=== PATIENT | male | born 1950 | race Caucasian/White ===

== ENCOUNTER → 2021-03-19 13:25 | Outpatient (CLI) | payer MEDICARE, OTHER, SELFPAY ==
[2021-03-19 15:51] LABS: COVID19 -Nasal RAPID Negative (Negative)
== END ==
PROVIDERS: PCP Internal Medicine; Referring Provider Specialist; Visit Provider Specialist
DX: Z20.822 Contact with and (suspected) exposure to COVID-19 (principal)
CPT/HCPCS: 87635; C9803

== ENCOUNTER 2021-03-20 06:12 | Day surgery (SDC) | payer MEDICARE, OTHER, SELFPAY ==
--- NOTE | 2021-03-20 | PATH_ITS ---
[facility] Accession Number: [id number] . 01 Material submitted: . PART A: rectum - RECTUM POLYP PART B: colon - SIGMOID POLYP . 01 Clinical history: . SDC . 02 Diagnosis: A. Rectum Polyp: Hyperplastic polyp. . B. Sigmoid Polyp: Multiple (approximately seven) portions of tubular adenoma. MRV 03/25/2021 0930 Local . 02 Electronically signed: . Naomi Alarcon MD, Pathologist NPI- [id number] . 01 Gross description: . Part A: RECTUM POLYP: Received in formalin is 1 fragment(s) of hall, soft tissue measuring 0.6 x 0.3 x 0.2 cm submitted entirely in 1 cassette(s) Part B: SIGMOID POLYP: Received in formalin are multiple fragment(s) of hall, soft tissue measuring 1.5 x 1.0 x 0.3 cm in aggregate submitted entirely in 1 cassette(s) /LANA 03/21/2021 0704 Local . 02 Pathologist provided ICD-10: R19.5, K63.5 . 02 CPT . 316662, [id number] Performed at: 01 [facility] [address], [place], [place] [id number] MD Lalo Peña MD Phone: [phone] Performed at: 02 [facility] [address] [place], [place] [id number] MD Tabatha Price MD Phone: [phone]
[2021-03-20 07:08] VITALS: BP 151/98; PULSE 78; TEMP 36.4; O2SAT 16; BMI 27.9
[2021-03-20] MEDS: LACTATED RINGERS 1,000 ML 200 ML IV (07:15)
--- NOTE | 2021-03-20 07:43 | P.HP_ITS ---
History of Present Illness History of Present Illness Date Patient Seen: 03/20/21 Time Patient Seen: 07:43 Chief complaint: [facility] [place] Narrative: 71-year-old man referred for colonoscopy following a positive fit test. Prior colonoscopies were unremarkable last scope was early . No personal or family history of colon cancer. On further history denies any recent gastrointestinal symptoms. No nausea, vomiting, abdominal pain, loss of appetite, unexplained weight loss, change in bowel habits, diarrhea, constipation, melena, hematochezia, or bright red blood per rectum. Patient History Family & Social History Social History: household members significant other Tobacco & Substance use: Smoking Status Never smoker alcohol intake current alcohol intake frequency holiday/special occasion Substance Use Type does not use Meds Home Medications and Allergies Home Medications Medication Instructions Recorded Confirmed Type amlodipine 5 mg tablet 5 mg PO DAILY 03/20/21 03/20/21 History hydrochlorothiazide 25 mg tablet 25 mg PO DAILY 03/20/21 03/20/21 History Allergies Allergy/AdvReac Type Severity Reaction Status Date / Time No Known Drug Allergies Allergy Verified 03/20/21 06:58 Review of Systems Review of Systems ROS: Yes All systems reviewed with the patient and are negative except as otherwise documented Exam Vital Signs (past 8 hours): - 03/20/21 07:08 Temperature 97.6 F Pulse Rate 78 Blood Pressure 151/98 H Pulse Oximetry 16 L Oxygen Delivery Method Heated High Flow Oxygen Flow Rate 95 Narrative Exam Narrative: GENERAL-well developed adult male, no acute distress HEENT-no scleral icterus, hearing intact NECK-no JVD, trachea midline CVS- regular rate, no peripheral edema RESP-unlabored respiratory effort, no audible wheezing GI-soft, nontender nondistended MSK-no cyanosis or clubbing, extremities without deformity SKIN-warm, dry NEURO-alert and oriented, no focal deficits PYSCH-Appropriate mood and affect Assessment & Plan Assessment and plan (1) Positive FIT (fecal immunochemical test): Status: Acute Assessment & Plan narrative: 71-year-old man with a positive fit test here for colonoscopy.. Technical details were discussed. Risks, benefits, alternatives explained. Risks including but not limited to myocardial infarction, aspiration, bleeding, pain, missed lesion, incomplete examination, need for further radiographic studies, colonic perforation, and need for major abdominal surgery were discussed. All questions were answered to their satisfaction, and they are in agreement with this plan.
[2021-03-20] MEDS: fentaNYL 250 MCG/5 ML INJ IV (07:50)
[2021-03-20] MEDS: MIDAZOLAM 5 MG/5 ML VIAL IV (07:50)
[2021-03-20 08:28] VITALS: BP 138/88; PULSE 69; RESP 16; TEMP 36.4; O2SAT 95
--- NOTE | 2021-03-20 08:29 | PM.OP.ENDO ---
Operative Date/Time/Diagnoses Date of procedure: 03/20/21 Time of procedure: 08:30 Pre-op diagnosis: Positive fit test Post-op diagnosis: same Procedure & Clinicians Study performed: Colonoscopy Same procedure as scheduled: Yes Indications: Positive fit test Surgeon: Jm Cramer Procedure Notes Procedure in detail: Medications: Conscious sedation using 4mg IV midazolam and 100mcg IV of fentanyl The history and physical was performed/updated and the patient is ASA class is 2. The procedure was discussed in detail with the patient. Potential risks complications including infection, bleeding, missed diagnosis, perforation, need for surgery, and were explained. Their questions were answered and informed consent was obtained. Patient was brought to the procedure room and placed standard monitoring equipment. The patient's vital signs were monitored continuously throughout the entire procedure. Prior to starting time-out was performed. The patient was placed in the left lateral recumbent position. Procedural sedation was administered. Examination began with a thorough inspection of the perianal area there was no evidence of fissures, fistulae, external hemorrhoids or cutaneous malignancy. The colonoscopy scope was then placed into the anal canal and was advanced to the cecum, which was identified by the ileocecal valve, the appendiceal orifice and the confluence of the taenia. The scope was then slowly withdrawn examining colon thoroughly in all directions, irrigating it of any residual stool. 1. 5 mm rectal polyp removed with biopsy forceps 2. 1.5 cm pedunculated sigmoid polyp removed with hot snare. Site tattooed with 2 mL ink injected over 4 quadrants 3. Sigmoid diverticulosis The patient tolerated the procedure well. They will be discharged once criteria are met. The prep was of good/excellent quality. The withdrawl time was 23 minutes. The sedation time was 36 minutes. Specimen(s): other (Rectal and sigmoid polyps) Impression: Colonic polyp Post-procedure Recommendations: Colonscopy in 5 years Disposition: same day surgery
[2021-03-20 08:33] VITALS: BP 133/85; PULSE 67; RESP 16; O2SAT 95
[2021-03-20 08:38] VITALS: BP 119/82; PULSE 66; RESP 16; O2SAT 98
[2021-03-20 08:44] VITALS: BP 119/82; PULSE 67; RESP 16; TEMP 36.7; O2SAT 97
== END 2021-03-20 09:00 | disposition home or self-care (01) ==
PROVIDERS: PCP Internal Medicine; Referring Provider Surgery; Visit Provider Surgery
PROC: 0DJD8ZZ Inspection of Lower Intestinal Tract, Via Natural or Artificial Opening Endoscopic (ICD-10-PCS; CPT 45378; principal; 2021-03-20 07:45)
DX: R19.5 Other fecal abnormalities (principal); K57.30 Diverticulosis of large intestine without perforation or abscess without bleeding; D12.5 Benign neoplasm of sigmoid colon
CPT/HCPCS: 45385; 45381; 99152; 99153; J2250; J3010